=== PATIENT | female | born 1960 | race Caucasian/White ===

== ENCOUNTER 2019-06-15 10:38 | Outpatient (CLI) | payer OTHER ==
[~2019-06-15] VITALS: Ht 157.5 cm; Wt 69.9 kg
[~2019-06-15 10:38] MED LIST: AMBIEN10 MG PO; CIMBALTA PO; CLONAZEPAM0.5 MG PO; DILTIAZEM PO; DOCUSATE SODIU100 MG PO; LISINOPRIL20 MG PO; NEURONTIN800 MG PO; PREVACID30 MG PO; ULTRAM50 MG PO; [UNRECOGNIZED DRUG - OTHER]
[2019-06-15] MEDS ORDERED: AMOX-CLAV 875-1 EACH PO (12:55)
== END 2019-06-15 10:58 | disposition home or self-care (01) ==
LOC: OFIC 805 10:38
DX: J31.0 Chronic rhinitis (principal); K09.1 Developmental (nonodontogenic) cysts of oral region

== ENCOUNTER 2019-08-25 09:40 | Outpatient (CLI) | payer OTHER ==
[~2019-08-25] VITALS: Ht 152.4 cm; Wt 70.3 kg
[~2019-08-25 09:40] MED LIST changes: +AMOX-CLAV 875-1 EACH PO
[2019-08-30] MEDS ORDERED: FORTAMET500 MG (11:17)
== END 2019-08-25 10:20 | disposition home or self-care (01) ==
LOC: OFIC 805 09:40 → EDBD 09:40 → OFIC 805 10:20
DX: J31.0 Chronic rhinitis (principal); K09.1 Developmental (nonodontogenic) cysts of oral region

== ENCOUNTER 2019-09-07 10:22 | Day surgery (SDC) | payer OTHER ==
[~2019-09-07 10:22] MED LIST changes: +FORTAMET500 MG
[2019-09-07] MEDS ORDERED: AMOX-CLAV 875-1 EACH PO (17:11)
[2019-09-07] MEDS ORDERED: MAPAP500 MG PO (17:13)
== END 2019-09-07 19:50 | disposition home or self-care (01) ==
LOC: CIR.AMB 10:22 → EDBD 10:22 → CIR.AMB 10:45
DX: D21.0 Benign neoplasm of connective and other soft tissue of head, face and neck (principal)

== ENCOUNTER 2019-09-15 10:59 | Outpatient (CLI) | payer OTHER ==
[~2019-09-15] VITALS: Ht 152.4 cm; Wt 68.0 kg
[~2019-09-15 10:59] MED LIST changes: +MAPAP500 MG PO
== END 2019-09-15 13:11 | disposition home or self-care (01) ==
LOC: OFIC 805 10:59
DX: J31.0 Chronic rhinitis (principal); K09.1 Developmental (nonodontogenic) cysts of oral region; M50.30 Other cervical disc degeneration, unspecified cervical region; I10 Essential (primary) hypertension

== ENCOUNTER 2020-01-04 09:11 | Outpatient (CLI) | payer OTHER ==
[2020-01-05] MEDS ORDERED: CIPRO HC OTIC S10 ML OT (13:44)
[2020-01-05] MEDS ORDERED: AMOX-CLAV 875-1 EACH PO (13:48)
== END 2020-01-04 15:00 | disposition home or self-care (01) ==
LOC: OFIC 805 09:11
DX: J31.0 Chronic rhinitis (principal); H92.13 Otorrhea, bilateral; H92.03 Otalgia, bilateral

== ENCOUNTER 2020-04-20 12:06 | Outpatient (CLI) | payer OTHER ==
[~2020-04-20 12:06] MED LIST changes: +CIPRO HC OTIC S10 ML OT
== END 2020-04-20 13:30 | disposition home or self-care (01) ==
LOC: OFIC 805 12:06
PROVIDERS: ATTEND Otolaryngology
DX: J34.89 Other specified disorders of nose and nasal sinuses (principal); H92.03 Otalgia, bilateral

== ENCOUNTER 2020-08-02 09:53 | Outpatient (CLI) | payer OTHER | END 2020-08-02 12:00 | disposition home or self-care (01) | LOC: OFIC 805 09:53 | PROVIDERS: ATTEND Otolaryngology | DX: J34.89 Other specified disorders of nose and nasal sinuses (principal); J31.0 Chronic rhinitis ==

== ENCOUNTER 2020-12-01 16:14 | Emergency (ER) | payer OTHER ==
[~2020-12-01] VITALS: Ht 157.5 cm; Wt 77.1 kg
== END 2020-12-01 21:45 | disposition home or self-care (01) ==
LOC: ER 16:14
DX: R10.13 Epigastric pain (principal)

== ENCOUNTER 2021-02-28 10:51 | Outpatient (CLI) | payer OTHER | END 2021-02-28 11:02 | disposition home or self-care (01) | LOC: LAB 10:51 → RAD 10:51 → LAB 11:02 | PROVIDERS: ATTEND Orthopaedic Surgery Orthopaedic Surgery of the Spine | DX: R07.89 Other chest pain (principal); D68.8 Other specified coagulation defects; D64.89 Other specified anemias; E03.8 Other specified hypothyroidism ==

== ENCOUNTER 2024-06-12 10:54 | Emergency (ER) | payer OTHER ==
[~2024-06-12] VITALS: Ht 157.5 cm; Wt 81.6 kg
[~2024-06-12 10:54] MED LIST changes: +AMOX-CLAV 875-1 EAC1 PO; +ATORVASTATIN CA10 MG PO; +BENADRYL25 MG PO; +CLONAZEPAM2 M1 PO; +COLACE100 MG PO; +DIAZEPAM5 MG PO; +DILTIAZEM 24HR240 MG; +DILTIAZEM ER120 M2 PO; +DILTIAZEM125 MG/122 IV; +FORTAMET500 MG PO; +GABAPENTIN800 M1 PO; +LIPITOR80 MG PO; +MEDROLPACK PO; +NEURONTIN300 MG; +PERCOCET 5-3251 EACH PO; +ULTRACET PO; +ZESTRIL10 M1 PO; +ZESTRIL5 MG
[2024-06-12] MEDS ORDERED: ORPHENADRINE CITRATE 30 MG/ML AMPUL IM STA (12:52)
[2024-06-12] MEDS ORDERED: DEXAMETHASONE SODIUM PHOSPHATE 4 MG/ML VIAL IM STA (12:52)
[2024-06-12] MEDS ORDERED: PIPERACILLIN/TAZOBACTAM SODIUM 3.375 GM VIAL IV STA (12:56)
[2024-06-12] MEDS ORDERED: ORPHENADRINE CITRATE 30 MG/ML AMPUL ONE (13:08)
[2024-06-12] MEDS ORDERED: DEXAMETHASONE SODIUM PHOSPHATE 4 MG/ML VIAL ONE (13:08)
[2024-06-12] MEDS ORDERED: PIPERACILLIN/TAZOBACTAM SODIUM 3.375 GM VIAL IV ONE (13:09)
[2024-06-12 13:17] LABS: HEMATOCRIT 29.4 % (36.0-45.00); MEAN CELL VOLUME 91.2 fL (80.00-100.00); MEAN CORPUSCULAR HGB CONC 33.8 g/dl (32.0-36.0); PLATELET COUNT 330 K/uL (150-450); RED BLOOD COUNT 3.22 M/uL (4.00-6.00); RED CELL DISTRIBUTION WIDTH 14.6 % (11.5-14.5)
[2024-06-12 13:19] LABS: HEMOGLOBIN 9.9 g/dL (12.0-15.00); MEAN CORPUSCULAR HEMOGLOBIN 30.7 pg (27.00-32.0)
[2024-06-12 13:35] LABS: INR 1.02; PROTHROMBIN TIME 11.1 SECONDS (9.0-11.5)
[2024-06-12 13:37] LABS: D DIMER 0.87 MG/L
[2024-06-12 13:40] LABS: ALBUMIN 4.4 gm/dL (3.4-5.0); BILIRUBIN TOTAL 0.72 mg/dL (0.3-1.2); CALCIUM 10.1 mg/dL (8.5-10.1); CREATININE SERUM 0.77 mg/dL (0.55-1.02); GFR 75.23; GLOBULINA 3.3 G/DL (2.4-3.5); POTASSIUM 4.6 mEq/L (3.5-5.1); TOTAL PROTEIN 7.7 gm/dL (6.4-8.2)
[2024-06-12] MEDS ORDERED: CEPHALEXIN750 MG PO (15:17)
[2024-06-12] MEDS ORDERED: MEDROLPACK PO (15:17)
== END 2024-06-12 16:23 | disposition home or self-care (01) ==
LOC: ER 10:56
PROVIDERS: General Practice
DX: L03.116 Cellulitis of left lower limb (principal); E11.9 Type 2 diabetes mellitus without complications; Z79.84 Long term (current) use of oral hypoglycemic drugs; Z88.6 Allergy status to analgesic agent